=== PATIENT | male | born 1940 | race Caucasian/White ===

== ENCOUNTER 2019-03-29 09:11 | Outpatient (CLI) | payer MEDICARE, BC ==
--- NOTE | 2019-03-29 10:19 | XRAY Report ---
Reason: POST FALL,ESSENTIAL (PRIMARY) HYPERTENSION Procedure Date: 03/29/2019 Accession Number: [id number] / [id number] Procedure: XRN - Chest 2 View X-Ray CPT Code: 37037 FULL RESULT: EXAM: CHEST RADIOGRAPHY EXAM DATE: 03/29/2019 09:23 AM. CLINICAL HISTORY: Post fall, essential (primary) hypertension. COMPARISON: None. TECHNIQUE: 2 views. FINDINGS: Lungs/Pleura: Lung volumes are high with mild flattening of diaphragms. Appearance of nodules in the right hilar region measuring up to 0.6 cm is felt to potentially represent calcified granulomata. There is no lobar consolidation or pulmonary edema. There is no pleural effusion or pneumothorax. Mediastinum: There is mild cardiac enlargement and the aortic arch is at least moderately calcified. Other: There is a biventricular AICD. Post CABG changes are present. IMPRESSION: High lung volumes with flattening of diaphragms, can be seen with obstructive lung disease. Marked cardiomegaly with AICD and post-CABG changes. Question right perihilar lung nodules measuring up to 0.6 cm. Given their ready visibility on plain radiograph, these possibly represent granulomata. If clinically indicated, further evaluation of the finding could be performed by CT. RADIA
== END 2019-03-29 09:12 | disposition home or self-care (01) ==
LOC: DI.N 09:11
PROVIDERS: ATTEND Internal Medicine
DX: I10 Essential (primary) hypertension (principal); M79.10 Myalgia, unspecified site
CPT/HCPCS: 71046

== ENCOUNTER 2022-02-06 21:56 | Outpatient (CLI) | payer MEDICARE, BC | END 2022-02-06 21:57 | disposition EMS.NT | LOC: EMS 21:56 | DX: Z03.89 Encounter for observation for other suspected diseases and conditions ruled out (principal) ==

== ENCOUNTER 2022-06-18 22:05 | Emergency (ER) | payer MEDICARE, BC ==
--- OUTSIDE RECORDS SUMMARY | 2022-06-18 22:12 | EXTERNAL MEDICAL SUMMARY RPT | Continuity of Care Document ---
:1940 Author Organization [facility] Address [address] [place] [address] Phone Allergies No information. Encounters No information. Functional Status No information. Immunizations No information. Medications No information. Problems No information. Procedures No information. Results/Labs test date author facility value unit interpret ation Result panel 1 (unknown) (no (unknown) (unknown) (no value) (units (unk nown) date) unknown) (unknown) (no (unknown) (unknown) (no value) (units (unk nown) date) unknown) (unknown) (no (unknown) (unknown) [address] [place] [address] (units (unknown) date) unknown) (unknown) (no (unknown) (unknown) [place], [place] (units ( unknown) date) [id number] unknown) (unknown) (no (unknown) (unknown) [facility] (units (unknown) date) unknown) (unknown) (no (unknown) (unknown) Signed (units (unkno wn) date) unknown) (unknown) (no (unknown) (unknown) Ultrasound (units (unk nown) date) Report unknown) (unknown) (no (unknown) (unknown) (no value) (units (unk nown) date) unknown) (unknown) (no (unknown) (unknown) 04/04/22 (units (unkno wn) date) unknown) (unknown) (no (unknown) (unknown) 1. 50-69% left (units (unknown) date) internal carotid unknown) artery stenosis. (unknown) (no (unknown) (unknown) 2. Less than 50% (units (unknown) date) right internal unknown) carotid artery stenosis. (unknown) (no (unknown) (unknown) 3. Antegrade (units (u nknown) date) vertebral artery unknown) flow bilaterally. (unknown) (no (unknown) (unknown) Approved by: (units (u nknown) date) nicki Tavares M.D. on 04/04/2022 at 14:24 (unknown) (no (unknown) (unknown) Brachial blood (units (unknown) date) pressure: 141/78 unknown) mm Hg. (unknown) (no (unknown) (unknown) Brachial blood (units (unknown) date) pressure: 145/81 unknown) mm Hg. (unknown) (no (unknown) (unknown) COMPARISON: (units (un known) date) [facility], unknown) US, CAROTID ARTERY DOPPLER BILAT, 01/14/2018, (unknown) (no (unknown) (unknown) Color and pulse (units (unknown) date) Doppler unknown) interrogation was performed of both carotid systems, (unknown) (no (unknown) (unknown) Common carotid (units (unknown) date) artery peak unknown) systolic velocity: 108 cm/sec. (unknown) (no (unknown) (unknown) Common carotid (units (unknown) date) artery peak unknown) systolic velocity: 85 cm/sec. (unknown) (no (unknown) (unknown) Dictated by: (units (u nknown) date) nicki Tavares M.D. on 04/04/2022 at 14:00 (unknown) (no (unknown) (unknown) External carotid (units (unknown) date) artery peak unknown) systolic velocity: 101 cm/sec. (unknown) (no (unknown) (unknown) External carotid (units (unknown) date) artery peak unknown) systolic velocity: 113 cm/sec. (unknown) (no (unknown) (unknown) FINDINGS: (units (unkn own) date) unknown) (unknown) (no (unknown) (unknown) Richard scale (units (unk nown) date) imaging unknown) description: Moderate calcific plaque (unknown) (no (unknown) (unknown) Richard scale (units (unk nown) date) imaging unknown) description: Moderate calcific plaque at the bifurcation (unknown) (no (unknown) (unknown) ICA/CCA peak (units (u nknown) date) systolic ratio: unknown) 0.9 . (unknown) (no (unknown) (unknown) ICA/CCA peak (units (u nknown) date) systolic ratio: unknown) 1.9 . (unknown) (no (unknown) (unknown) IMPRESSION: (units (un known) date) unknown) (unknown) (no (unknown) (unknown) INDICATIONS: (units (u nknown) date) Occlusion and unknown) stenosis of bilateral carotid arteries (unknown) (no (unknown) (unknown) Internal carotid (units (unknown) date) artery end unknown) diastolic velocity: 24 cm/sec. (unknown) (no (unknown) (unknown) Internal carotid (units (unknown) date) artery end unknown) diastolic velocity: 41 cm/sec. (unknown) (no (unknown) (unknown) Internal carotid (units (unknown) date) artery peak unknown) systolic velocity: 157 cm/sec. (unknown) (no (unknown) (unknown) Internal carotid (units (unknown) date) artery peak unknown) systolic velocity: 93 cm/sec. (unknown) (no (unknown) (unknown) Left side: (units (unk nown) date) unknown) (unknown) (no (unknown) (unknown) Percent internal (units (unknown) date) carotid artery unknown) stenosis: 50-69% . (unknown) (no (unknown) (unknown) Percent internal (units (unknown) date) carotid artery unknown) stenosis: Less than 50% . (unknown) (no (unknown) (unknown) Right side: (units (un known) date) unknown) (unknown) (no (unknown) (unknown) Stenosis (units (unkno wn) date) calculations are unknown) based on SRU (Society of Radi[employer] in Ultras[employer]) (unknown) (no (unknown) (unknown) TECHNIQUE: (units (unk nown) date) unknown) (unknown) (no (unknown) (unknown) Vertebral (units (unkn own) date) artery: Flow unknown) direction is antegrade. (unknown) (no (unknown) (unknown) documentation (units ( unknown) date) and velocity unknown) measurements. (unknown) (no (unknown) (unknown) [id number] (units (unkno wn) date) unknown) (unknown) (no (unknown) (unknown) 13:07. (units (unkno wn) date) unknown) (unknown) (no (unknown) (unknown) Accession (units (unkn own) date) Number: unknown) [id number] (unknown) (no (unknown) (unknown) Age/Sex: 81 / M (units (unknown) date) Date of unknown) Service: (unknown) (no (unknown) (unknown) : 1940 (units (unknown) date) Acct:[id number] unknown) (unknown) (no (unknown) (unknown) Loc: [place] (units (unkno wn) date) unknown) (unknown) (no (unknown) (unknown) Ordering (units (unkno wn) date) Provider: unknown) Je De Jesus MD (unknown) (no (unknown) (unknown) PROCEDURE: US (units (unknown) date) CAROTID DOPPLER unknown) BI (unknown) (no (unknown) (unknown) Patient: (units (unkno wn) date) Vicente Murdock unknown) MR#: [id number] (unknown) (no (unknown) (unknown) Procedure: US (units ( unknown) date) carotid doppler unknown) BI (unknown) (no (unknown) (unknown) criteria. (units (unkn own) date) unknown) (unknown) (no (unknown) (unknown) with image (units (unk nown) date) unknown) Social History No information. Vital Signs No information.
[2022-06-18 22:35] LABS: BASOPHILS % (AUTO) 0.7 %; EOSINOPHILS # (AUTO) 0.2 10^3/uL (0.0-0.7); EOSINOPHILS % (AUTO) 4.3 %; HCT - HEMATOCRIT 39.6 % (42.0-52.0); HGB - HEMOGLOBIN 13.8 g/dL (14.0-18.0); LYMPHOCYTES # (AUTO) 1.4 10^3/uL (1.5-3.5); LYMPHOCYTES % (AUTO) 25.4 %; MEAN CORPUSCULAR HGB CONC 34.8 g/dL (32.0-36.0); MEAN CORPUSCULAR VOLUME 91.9 fL (80.0-94.0); MEAN PLATELET VOLUME 8.9 fL (7.4-11.4); MONOCYTES # (AUTO) 0.8 10^3/uL (0.0-1.0); MONOCYTES % (AUTO) 13.6 %; NEUTROPHILS # (AUTO) 3.1 10^3/uL (1.5-6.6); NEUTROPHILS % (AUTO) 55.8 %; PLT - PLATELET COUNT 113 10^3/uL (130-450); RED BLOOD COUNT 4.31 10^6/uL (4.70-6.10); RED CELL DISTRIBUTION WIDTH 12.7 % (12.0-15.0); WHITE BLOOD COUNT 5.6 x10^3/uL (4.8-10.8)
[2022-06-18 22:47] LABS: ALBUMIN 4.6 g/dL (3.2-5.5); ALBUMIN/GLOBULIN RATIO 1.7 (1.0-2.2); BILIRUBIN,TOTAL 1.2 mg/dL (0.2-1.0); CALCIUM 10.3 mg/dL (8.5-10.3); CREATININE 1.4 mg/dL (0.6-1.2); POTASSIUM 3.7 mmol/L (3.5-5.0); TOTAL PROTEIN 7.3 g/dL (6.7-8.2)
--- NOTE | 2022-06-19 00:46 | ED Physician Documentation ---
History of Present Illness - Stated complaint Stated Complaint: MALE /BLEEDING - Chief complaint Chief Complaint: Abd Pain - History obtained from History obtained from: Patient, Family () - Additonal information Additional information: ID 1-year-old man on baby aspirin daily presents with 1 episode of blood in the stool this past evening. Patient states that he had a bowel movement that was well formed with blood intermixed in with the stool. He was concerned because he was recently started on Jardiance and thought it would maybe have been a side effect. Denies dizziness, other episodes of melena or hematochezia. Last colonoscopy about 8 years ago. Review of Systems Ten Systems: 10 systems reviewed and negative Constitutional: denies: Fever GI: reports: Bloody / black stool. denies: Abdominal Pain, Nausea, Diarrhea : denies: Dysuria PD PAST MEDICAL HISTORY - Past Medical History Cardiovascular: Hypertension, High cholesterol, Coronary artery disease, Peripheral Vascular Disease, [place], Arrhythmia Respiratory: None Endocrine/Autoimmune: Type 2 diabetes GI: None : Benign prostate hypertrophy HEENT: None Psych: None Musculoskeletal: Osteoarthritis Derm: None - Past Surgical History General: Cholecystectomy, Colonoscopy Cardiovascular: CABG, Pacemaker HEENT: Tonsil/Adenoidectomy - Present Medications Home Medications: Ambulatory Orders Medication Instructions Recorded Confirmed Aspirin [Lite Coat Aspirin] 81 mg PO BID 07/15/13 09/11/17 Atorvastatin Calcium [Lipitor] 40 mg PO DAILY 07/15/13 09/11/17 Multivitamin with Minerals 1 each PO DAILY 07/15/13 09/11/17 [Myvitalife] Triamterene/Hydrochlorothiazid 0.5 each PO DAILY 07/15/13 09/11/17 [Triamterene-Hctz 75-50 mg Tab] lisinopriL [Prinivil] 20 mg PO BID 07/15/13 09/11/17 Colesevelam HCl [Welchol] 3.75 gm PO DAILY 09/11/17 09/11/17 Metformin HCl 250 mg PO DAILY 09/11/17 09/11/17 Metoprolol Tartrate 25 mg PO BID 09/11/17 09/11/17 Niacin (Inositol Niacinate) 500 mg PO Q7D 09/11/17 09/11/17 [Niacin 500 mg Capsule] - Allergies Allergies/Adverse Reactions: Allergies Allergy/AdvReac Type Severity Reaction Status Date / Time Penicillins Allergy unknown Verified 06/18/22 22:17 - Social History Smoking Status: Never smoker PD ED PE NORMAL - Vitals Vital signs reviewed: Yes - General General: Alert and oriented X 3, No acute distress, Well developed/nourished - HEENT HEENT: Atraumatic, PERRL, EOMI - Neck Neck: Supple, no meningeal sign - Cardiac Cardiac: RRR - Respiratory Respiratory: No respiratory distress, Clear bilaterally - Abdomen Abdomen: Non tender, Non distended - Rectal Rectal: Other (External hemorrhoids visible. Brown stool in the rectal vault.) - Back Back: No CVA TTP - Derm Derm: Normal color, Warm and dry - Extremities Extremities: No deformity - Neuro Neuro: Alert and oriented X 3 - Psych Psych: Normal mood, Normal affect Results - Vitals Vitals: Vital Signs - 24 hr 06/18/22 22:10 Temperature 36.7 C Heart Rate 75 Respiratory 17 Rate Blood Pressure 158/72 H O2 Saturation 100 Oxygen O2 Source Room air - Labs Labs: Laboratory Tests 06/18/22 06/18/22 22:31 22:31 WBC 5.6 RBC 4.31 L Hgb 13.8 L Hct 39.6 L MCV 91.9 MCH 32.0 H MCHC 34.8 RDW 12.7 Plt Count 113 L MPV 8.9 Neut # (Auto) 3.1 Lymph # (Auto) 1.4 L [place] # (Auto) 0.8 Eos # (Auto) 0.2 Baso # (Auto) 0.0 Absolute Nucleated RBC 0.00 Nucleated RBC % 0.0 Sodium 134 L Potassium 3.7 Chloride 99 L Carbon Dioxide 28 Anion Gap 7.0 BUN 31 H Creatinine 1.4 H Estimated GFR (MDRD) 49 L Glucose 123 H Calcium 10.3 Total Bilirubin 1.2 H AST 21 ALT 19 Alkaline Phosphatase 69 Total Protein 7.3 Albumin 4.6 Globulin 2.7 Albumin/Globulin Ratio 1.7 Lipase 28 PD MEDICAL DECISION MAKING - ED course ED course: 81-year-old man presented for evaluation of 1 episode of bloody stool. Hemorrhoids visible on exam. Hemoglobin within normal range. Return precautions given and patient will follow-up with his primary doctor. Departure - Departure Disposition: 01 Home, Self Care Clinical Impression: Blood in stool, Hemorrhoid Condition: Good Instructions: Bleeding Gastrointestinal Comments: He was seen in the emergency department for evaluation of blood in the stool. Rectal exam revealed that you have hemorrhoids, which can cause mild bleeding and is not dangerous. Your blood level is normal on lab work. If you have further bleeding then you should follow-up with your primary doctor. Return to the emergency department immediately if you have massive bleeding, experience lightheadedness or have any other new or worsening symptoms of concern to you.
[2022-06-19 00:47] VITALS: BP 142/77
== END 2022-06-19 00:53 | disposition home or self-care (01) ==
LOC: ED 22:05
DX: K92.1 Melena (principal); K64.9 Unspecified hemorrhoids
CPT/HCPCS: 36415; 80053; 83690; 85025; 99282; 99283